=== PATIENT | female | born 1990 | race African-American/Black ===

== ENCOUNTER 2016-04-17 08:17 | Emergency (ER) | payer OTHER ==
[~2016-04-17] VITALS: Ht 147.3 cm; Wt 46.7 kg
[~2016-04-17 08:17] MED LIST: TRAMADOL HCL50 M1 PO
[2016-04-17 08:21] VITALS: BP 96/59
--- NOTE | 2016-04-17 08:34 | ED GI/GU/ABDOMINAL COMPLAINT ---
History of Present Illness General Chief Complaint: Female Urogenital Problems Stated Complaint: PREG TEST Source: patient Exam Limitations: no limitations Vital Signs & Intake/Output Vital Signs & Intake/Output Vital Signs Date Time Temp Pulse Resp B/P Pulse O2 O2 Flow FiO2 Ox Delivery Rate 04/17 0821 96.8 111 18 96/59 97 Room Air Allergies Coded Allergies: No Known Allergies (07/09/15) Reconcile Medications Tramadol HCl 50 MG TABLET 1 TAB PO BIDP PRN PAIN Triage Note: 25 Y/O FEMALE STATING "I KNOW I AM ". PT STATES HER LAST MENSES WAS 03/19/16. PT STATES SHE DID NOT TAKE A HOME TEST BUT "I FEEL IT IN MY BODY". REQUESTING TO SPEAK WITH DOCTOR ABOUT /OPTIONS Triage Nurses Notes Reviewed? yes ? Y Is pt currently ? No Onset: Abrupt Duration: day(s): (FEW) Timing: recent history Activities at Onset: sexual activity No Modifying Factors: none HPI: This is a 25-year-old female with suspected who presents to the ER requesting termination of . She states that she did not check a test but knows that she is as her body feels different. She had unprotected intercourse last Wednesday. No abdominal pain vaginal bleeding or discharge. No nausea or vomiting. She states that she has had previous terminations in the past and would like a pill. Past History Travel History Traveled to [place] past 21 day No Medical History Any Pertinent Medical History? 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 No Review of Systems Review of Systems Constitutional: Denies: chills, fever. EENTM: Reports: no symptoms. Respiratory: Reports: no symptoms. Cardiovascular: Reports: no symptoms. GI: Denies: abdominal pain, nausea, vomiting. Genitourinary: Reports: no symptoms. Musculoskeletal: Reports: no symptoms. Skin: Reports: no symptoms. Neurological/Psychological: Reports: no symptoms. Hematologic/Endocrine: Denies: bruising, bleeding. Immunologic/Allergic: Reports: no symptoms. All Other Systems: Reviewed and Negative Physical Exam Physical Exam General Appearance: well developed/nourished, alert, awake, mild distress Head: atraumatic, normal appearance Eyes: Bilateral: normal appearance, PERRL, EOMI. Ears, Nose, Throat, Mouth: hearing grossly normal, moist mucous membrane Neck: normal inspection Respiratory: normal breath sounds, chest non-tender, no respiratory distress Cardiovascular: regular rate/rhythm Gastrointestinal: soft, non-tender Extremities: normal range of motion Neurologic/Psych: no motor/sensory deficits, awake, alert, oriented x 3 Skin: intact, normal color, warm/dry Core Measures ACS in differential dx? No Severe Sepsis Present: No Septic Shock Present: No Progress Differential Diagnosis: , IRREGULAR MENSTRUATION Plan of Care: Orders Procedure Date/time Status URINE 04/18 819 Active URINALYSIS 04/18 819 Active Patient instructed to follow up with her MANAGER RESIDENTIAL doctor locally or with [facility] 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 Departure Forms: Customer Survey General Discharge Information
== END 2016-04-17 08:39 ==
LOC: ERH 08:17
DX: N91.2 Amenorrhea, unspecified (principal)
CPT/HCPCS: 81025

== ENCOUNTER 2016-04-20 11:59 | Emergency (ER) | payer OTHER ==
[~2016-04-20] VITALS: Ht 147.3 cm; Wt 40.8 kg
[2016-04-20 12:07] VITALS: BP 100/62
[2016-04-20 13:56] LABS: ABSOLUTE BASOPHIL COUNT 0 /CUMM (0.0-0.2); ABSOLUTE EOSINOPHIL COUNT 0.1 /CUMM (0.0-0.7); ABSOLUTE GRANULOCYTE CT 4.9 /CUMM (1.4-6.5); ABSOLUTE LYMPH COUNT 2.1 /CUMM (1.2-3.4); ABSOLUTE MONOCYTE COUNT 0.5 /CUMM (0.10-0.60); BASOPHIL % 0.3 % (0.0-2.0); EOSINOPHIL % 0.8 % (0-5); GRANULOCYTE % 64.4 % (42.2-75.2); HEMATOCRIT 38.5 % (37-47); MEAN CORPUSCULAR HGB 31.5 PG (27.0-31.0); MEAN CORPUSCULAR HGB CONC 34.2 G/DL (33.0-37.0); MEAN CORPUSCULAR VOLUME 91.9 FL (81.0-99.0); MEAN PLATELET VOLUME 8.5 FL (7.4-10.4); RBC DISTRIBUTION WIDTH 13.4 % (11.5-14.5); WHITE BLOOD CELL COUNT 7.5 /CUMM (4.8-10.8)
[2016-04-20 14:14] LABS: PLATELET COUNT 257 /CUMM (130-400)
--- NOTE | 2016-05-11 09:30 | ED GENERAL ADULT ---
History of Present Illness General Chief Complaint: Female Urogenital Problems Stated Complaint: +PREG TEST TWO DAYS AGO BLEEDING TODAY/CRAMPING Source: patient, old records, FATHER Exam Limitations: PATIENT EXTREMELY RELUCTANT TO PROVIDE HISTORY. Vital Signs & Intake/Output Vital Signs & Intake/Output Vital signs reviewed Allergies Coded Allergies: No Known Allergies (07/09/15) Reconcile Medications No Known Home Medications Triage Note: PT TO ED C/O VAGINAL BLEEDING SINCE THIS AM. STATES 2 DAYS AGO HAD POSITIVE PREGANCY TEST HERE. Triage Nurses Notes Reviewed? yes : Yes Patient currently breastfeeds: No HPI: Patient presents for evaluation of vaginal bleeding that began this morning. Patient was evaluated 2 days ago and had a positive test was asked to follow up with her [employer]ACHINE doctor according to prior visit documentation. I'm unable to obtain a full history as the patient is extremely reluctant to even be evaluated. Unfortunately after repeated attempts to encourage the patient to be evaluated here in the emergency department (to establish if this is an intrauterine versus an ectopic ), the patient walked out of the emergency department in the accompaniment of her father. Past History Travel History Traveled to [place] past 21 day No Medical History Any Pertinent Medical History? 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 No Review of Systems Review of Systems Constitutional: Reports: no symptoms. EENTM: Reports: no symptoms. Respiratory: Reports: no symptoms. Cardiovascular: Reports: no symptoms. GI: Reports: no symptoms. Genitourinary: Reports: see HPI. Musculoskeletal: Reports: no symptoms. Skin: Reports: no symptoms. Neurological/Psychological: Reports: no symptoms. Hematologic/Endocrine: Reports: no symptoms. Immunologic/Allergic: Reports: no symptoms. All Other Systems: Reviewed and Negative Physical Exam Physical Exam General Appearance: SEE BELOW Comments: Physical examination Limited due to the patient's lack of cooperation/ compliance. Gen.: Well-nourished, well-developed, no acute respiratory distress. Head: Normocephalic, atraumatic. Eyes: Normal inspection bilaterally Ears: Normal inspection bilaterally Nose: Normal inspection Throat/mouth : Moist mucosa Neck: Supple, full range of motion, no goiter by observation Heart: Unable to assess Lungs: Quiet respirations Chest: Nontender Back: Normal range of motion Abdomen: UNable to assess Extremities: Normal range of motion grossly, no obvious tremors Neurologic: Cranial nerves grossly intact, speech is clear, gait is stable Skin: warm and dry Psychiatric: Anxious and inconsistently cooperative, no apparent delusions or hallucinations based on limited evaluation Core Measures ACS in differential dx? No CVA/TIA Diagnosis: No Severe Sepsis Present: No Septic Shock Present: No Progress Differential Diagnoses I considered the following diagnoses in my evaluation of the patient: IUP versus ectopic versus miscarriage Plan of Care: Follow-up [employer] Initial ED EKG: none Departure Departure Disposition: LEFT AGAINST MEDICAL ADVICE Condition: Stable Clinical Impression Primary Impression: Qualifiers: Weeks of gestation: unspecified Qualified Code: Z33.1 - state, incidental Secondary Impressions: Vaginal bleeding Referrals: SHARAN ODONNELL MD (PCP/Family) Departure Forms: Customer Survey General Discharge Information Prescriptions: Current Visit Scripts No Known Home Medications Critical Care Note Critical Care Note Critical Care Time: non-applicable
== END 2016-04-20 15:00 ==
LOC: ERH 11:59
PROVIDERS: Student in an Organized Health Care Education/Training Program
DX: O20.9 Hemorrhage in early pregnancy, unspecified (principal)
CPT/HCPCS: 81001; 81025